=== PATIENT | female | born 1960 | race Two or more races ===

== ENCOUNTER 2020-03-11 13:43 | Outpatient (CLI) | payer MEDICAID ==
--- NOTE | 2020-03-11 15:59 | Consultation ---
DATE OF CONSULTATION: 03/11/2020 CHIEF COMPLAINT: Referral for screening colonoscopy. PAST MEDICAL HISTORY: 1. Hypertension. 2. 3. Hypercholesterolemia. 4. Hypothyroidism. PAST SURGICAL HISTORY: Cholecystectomy. MEDICATIONS: Please see medication reconciliation list. FAMILY HISTORY: No family history of GI malignancies. SOCIAL HISTORY: The patient denies any tobacco, alcohol, or drug abuse. ALLERGIES: No known allergies. REVIEW OF SYSTEMS: A 10-point review of systems performed and was grossly negative. PHYSICAL EXAMINATION: GENERAL: This is a well-developed female, in no acute distress anicteric. HEENT: Normocephalic and atraumatic. Sclerae are anicteric. NECK: Supple. No evidence of obvious lymphadenopathy. CARDIOVASCULAR: Regular rate and rhythm. Plus S1, S2. LUNGS: Clear to auscultation bilaterally. ABDOMEN: Positive bowel sounds. Soft and nontender. No rebound. No guarding. No peritoneal sign. EXTREMITIES: No cyanosis, no clubbing, no edema. ASSESSMENT AND PLAN: The patient is a 60-year-old female with referral for screening colonoscopy. The patient was given instruction for colonoscopy. Risks and benefits of procedure was explained to her. We will schedule her when authorization is obtained. Kar Nugent M.D. DR: Prema JOB#: [id number] CC:
[2020-03-12] MEDS ORDERED: SYNTHROID88 MCG ORAL (10:05)
[2020-03-12] MEDS ORDERED: LOSARTAN POTASS25 MG ORAL (10:05)
== END 2020-03-11 15:43 | disposition home or self-care (01) ==
LOC: PAN 13:43
DX: I10 Essential (primary) hypertension (principal); E78.00 Pure hypercholesterolemia, unspecified; E03.9 Hypothyroidism, unspecified; Z90.49 Acquired absence of other specified parts of digestive tract
CPT/HCPCS: G0463